=== PATIENT | female | born 1950 | race Caucasian/White ===

== ENCOUNTER 2017-07-26 07:52 | Day surgery (SDC) | payer MEDICARE, BC ==
[2017-07-26] MEDS ORDERED: BRIMONIDINE 0.2% OPHTH DROPS 5 ML EACHEYE ONE (07:53)
[2017-07-26] MEDS ORDERED: TIMOLOL 0.5% OPHTH DROPS EACHEYE ONE (07:53)
[2017-07-26] MEDS ORDERED: PHENYLEPHRINE 2.5% OPHTH 2 ML DROPS ONE (08:42)
[2017-07-26] MEDS ORDERED: KETOROLAC 0.45% OPHTH DROPS ONE (08:42)
[2017-07-26] MEDS ORDERED: CYCLOPENTOLATE 1% OPHTH DROPS 2 ML ONE (08:42)
[2017-07-26] MEDS ORDERED: PROPARACAINE 0.5% OPHTH DROPS 15 ML ONE (08:43)
[2017-07-26] MEDS ORDERED: LACTATED RINGERS 500 ML IV ONE (08:43)
[2017-07-26] MEDS ORDERED: KETOROLAC 0.45% OPHTH DROPS LEFTEYE ONE (08:45)
[2017-07-26] MEDS ORDERED: PHENYLEPHRINE 2.5% OPHTH 2 ML DROPS LEFTEYE ONE (08:45)
[2017-07-26] MEDS ORDERED: CYCLOPENTOLATE 1% OPHTH DROPS 2 ML LEFTEYE ONE (08:45)
[2017-07-26] MEDS ORDERED: PROPARACAINE 0.5% OPHTH DROPS 15 ML LEFTEYE ONE ×2 (08:45→09:16)
[2017-07-26] MEDS ORDERED: TRYPAN BLUE 0.5 ML SYRINGE IO ONE ×2 (08:54→08:57)
[2017-07-26] MEDS ORDERED: CHONDR SULF/HYALURONATE SYRINGE IO ONE (09:15)
[2017-07-26] MEDS ORDERED: BRIMONIDINE 0.2% OPHTH DROPS 5 ML OPTH ONE (09:15)
[2017-07-26] MEDS ORDERED: EPINEPHrine 1 MG/ML AMP IVP ONE (09:15)
[2017-07-26] MEDS ORDERED: TRIAMCIN/MOXIFLOX/VANCO 1 ML VIAL IO ONE (09:16)
[2017-07-26] MEDS ORDERED: BSS/LIDOCAINE/EPINEPHRINE 1 ML SYRINGE IO ONE ×2 (09:16)
[2017-07-26] MEDS ORDERED: TIMOLOL 0.5% OPHTH DROPS OPTH ONE (09:16)
[2017-07-26] MEDS ORDERED: MIDAZOLAM 2 MG/2 ML VIAL IVP ONE (09:17)
[2017-07-26 09:34] VITALS: BP 106/64
--- NOTE | 2017-07-26 11:09 | OPERATIVE REPORT ---
DATE OF SERVICE: 07/26/2017 Physician: Alin Westfall MD PREOPERATIVE DIAGNOSIS: Visually significant cataract, left eye. This is her first cataract surgery. 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 POSTOPERATIVE DIAGNOSIS: Visually significant cataract, left eye. This is her first cataract surgery. 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 PROCEDURE PERFORMED: Phacoemulsification with posterior chamber intraocular lens implant, left eye. SURGEON: Alin Westfall M.D. ANESTHESIA: Monitored anesthesia care. COMPLICATIONS: None. OPERATIVE INDICATIONS: This is a 67-year-old woman with progressive vision loss in the left eye due to 2-3+ nuclear sclerotic cataract. Best corrected visual acuity was count fingers at 7 feet with glare to count fingers at 1 feet. INDICATIONS FOR SURGERY: Difficulty seeing words, closed captions and games scores on TV and overall decrease in vision. She was consented at length concerning the risks and benefits of cataract surgery. Afterward, she expressed a desire to proceed with surgery. OPERATIVE PROCEDURE: The patient was taken into OR #3 and placed under monitored anesthesia care. A surgical timeout was conducted confirming correct patient, correct procedure, and correct surgical site. She was given topical anesthesia, and prepped and draped in the usual sterile fashion. The eye was entered at the 6 and 3 o'clock positions. Intracameral Shugarcaine was injected into the anterior chamber, followed by Viscoat. A continuous-tear curvilinear capsulorrhexis was performed. The nucleus was hydrodissected and phacoemulsified. Cortex was evacuated using automated infusion and aspiration. Provisc was injected in the capsular bag and an 08.0 diopter intraocular lens was inserted into the bag. Approximately 0.7 mL of a mixture of triamcinolone and moxifloxacin was injected subconjunctivally in the superior quadrant for infection and inflammation prophylaxis. I and A was used to evacuate the viscoelastic material. The eye was inflated to physiologic pressure using balanced salt solution and found to be watertight. The patient was taken from the operating room in good condition and given postoperative instructions. TD: 07/26/2017 09:42 [facility]ISION[facility]
== END 2017-07-26 07:53 | disposition home or self-care (01) ==
LOC: SDS 07:52
PROVIDERS: ATTEND Ophthalmology
PROC: 08RK3JZ Replacement of Left Lens with Synthetic Substitute, Percutaneous Approach (ICD-10-PCS; principal; 2017-07-26 09:00)
DX: H25.12 Age-related nuclear cataract, left eye (principal); H44 Disorders of globe; K21.9 Gastro-esophageal reflux disease without esophagitis; G47.33 Obstructive sleep apnea (adult) (pediatric); M19.90 Unspecified osteoarthritis, unspecified site
CPT/HCPCS: 66984; A9270; J3490

== ENCOUNTER 2017-09-06 09:08 | Day surgery (SDC) | payer MEDICARE, OTHER ==
[~2017-09-06 09:08] MED LIST: BRIMONIDINE 0.2% OPHTH DROPS 5 ML ONE; BSS/LIDOCAINE/EPINEPHRINE 1 ML SYRINGE ONE; TIMOLOL 0.5% OPHTH DROPS ONE; TRIAMCIN/MOXIFLOX OPHTHALMIC 0.6 ML VIAL IO ONE; VANCOMYCIN OPHTHALMI 8MG/0.8ML 8 MG/0.8 ML SYRINGE IO ONE
[2017-09-06] MEDS ORDERED: PHENYLEPHRINE 2.5% OPHTH 2 ML DROPS ONE (09:28)
[2017-09-06] MEDS ORDERED: KETOROLAC 0.45% OPHTH DROPS ONE (09:28)
[2017-09-06] MEDS ORDERED: CYCLOPENTOLATE 1% OPHTH DROPS 2 ML ONE (09:29)
[2017-09-06] MEDS ORDERED: PROPARACAINE 0.5% OPHTH DROPS 15 ML ONE (09:30)
[2017-09-06] MEDS ORDERED: LACTATED RINGERS 500 ML IV ONE (09:56)
[2017-09-06] MEDS ORDERED: KETOROLAC 0.45% OPHTH DROPS RIGHTEYE ONE (10:07)
[2017-09-06] MEDS ORDERED: PROPARACAINE 0.5% OPHTH DROPS 15 ML RIGHTEYE ONE ×2 (10:07→11:44)
[2017-09-06] MEDS ORDERED: PHENYLEPHRINE 2.5% OPHTH 2 ML DROPS RIGHTEYE ONE (10:07)
[2017-09-06] MEDS ORDERED: CYCLOPENTOLATE 1% OPHTH DROPS 2 ML RIGHTEYE ONE (10:07)
[2017-09-06] MEDS ORDERED: MIDAZOLAM 2 MG/2 ML VIAL IVP ONE (11:30)
[2017-09-06] MEDS ORDERED: BRIMONIDINE 0.2% OPHTH DROPS 5 ML OPTH ONE (11:42)
[2017-09-06] MEDS ORDERED: TIMOLOL 0.5% OPHTH DROPS OPTH ONE (11:43)
[2017-09-06] MEDS ORDERED: EPINEPHrine 1 MG/ML AMP IR ONE (11:43)
[2017-09-06] MEDS ORDERED: CHONDR SULF/HYALURONATE SYRINGE IO ONE (11:43)
[2017-09-06] MEDS ORDERED: BSS/LIDOCAINE/EPINEPHRINE 1 ML SYRINGE IO ONE (11:43)
[2017-09-06 12:09] VITALS: BP 132/66
--- NOTE | 2017-09-06 12:23 | OPERATIVE REPORT ---
DATE OF SERVICE: 09/06/2017 Physician: Alin Westfall MD PREOPERATIVE DIAGNOSIS: Visually significant cataract, right eye. Cataract surgery was performed on the left eye on 07/26/2017. POSTOPERATIVE DIAGNOSIS: Visually significant cataract, right eye. Cataract surgery was performed on the left eye on 07/26/2017. PROCEDURE: Phacoemulsification with posterior chamber intraocular lens implant, right eye, with laser assist. SURGEON: Alin Westfall MD ANESTHESIA: Monitored anesthesia care. COMPLICATIONS: None. OPERATIVE INDICATIONS: This is a 67-year-old woman with progressive vision loss in the right eye due to 2-3+ nuclear sclerotic cataract. Best corrected visual acuity is 20/30, with glare to 26/30 in the right eye. Indications for surgery were difficulty seeing street signs, difficulty driving at night because of head lights from other vehicles, difficulty with glare or bright lights in a situation, and difficulty tracking the golf ball. She was consented at length concerning the risks and benefits of cataract surgery, after which she expressed a desire to proceed with surgery. OPERATIVE PROCEDURE: The patient was taken to OR #3 and placed under monitored anesthesia care. A surgical timeout was conducted confirming correct patient, correct procedure, and correct surgical site. She was placed under the LenSx laser, and eye was docked to the laser interface. The laser performed the capsulotomy, lens softening, phaco wounds, and arcuate keratotomy incisions. She was then moved to the operating microscope, given topical anesthesia, and then prepped and draped in the usual sterile fashion. The eye was entered at the 12 and 9 o'clock positions. Intracameral Shugarcaine was injected into the anterior chamber, followed by Viscoat. The capsulorrhexis flap created by the LenSx laser was removed from the anterior chamber. The nucleus was hydrodissected and phacoemulsified. The cortex was evacuated using automated infusion and aspiration. Provisc was injected into the capsular bag, and a 12.0 diopter intraocular lens was inserted into the bag. Approximately 0.8 mL of a mixture of triamcinolone, moxifloxacin, and vancomycin was injected subconjunctivally in the superior quadrant for infection and inflammation prophylaxis. I and A was used to evacuate the viscoelastic material. The eye was inflated to physiologic pressure using balanced salt solution, and found to be watertight. The patient was taken from the operating room in good condition, and given postoperative instructions. TD: 09/06/2017 12:15
== END 2017-09-06 09:09 | disposition home or self-care (01) ==
LOC: SDS 09:08
PROVIDERS: ATTEND Ophthalmology
PROC: 08RJ3JZ Replacement of Right Lens with Synthetic Substitute, Percutaneous Approach (ICD-10-PCS; principal; 2017-09-06 10:30)
DX: H25.11 Age-related nuclear cataract, right eye (principal); I10 Essential (primary) hypertension; H44.22 Degenerative myopia, left eye; G47.33 Obstructive sleep apnea (adult) (pediatric)
CPT/HCPCS: 66984; A9270; J3490; V2632

== ENCOUNTER 2017-11-27 07:43 | Outpatient (CLI) | payer MEDICARE, OTHER ==
--- NOTE | 2017-11-27 11:49 | MRI Report ---
Reason: SPRAIN OF UNSPECIFIED SITE OF LEFT KNEE,INITIAL E Procedure Date: 11/27/2017 Accession Number: [id number] / [id number] Procedure: MRI - Knee LT W/O CPT Code: FULL RESULT: EXAM: LEFT KNEE MRI WITHOUT CONTRAST EXAM DATE: 11/27/2017 08:38 AM. CLINICAL HISTORY: Sprain of unspecified site of left knee, initial encounter. COMPARISON: None. TECHNIQUE: Multiplanar, multisequence T1-weighted and fluid-sensitive sequences of the knee without contrast. Other: None. FINDINGS: Bones: There is severe thinning of the hyaline cartilage of the medial compartment with osteophytes and subchondral edema consistent with moderate to severe osteoarthritis. There are regions of denuded bone. There is mild hyaline cartilage thinning in the lateral and patellofemoral compartments also with osteophyte formation. Articular Cartilage: See above. Medial Meniscus: There is an incomplete radial tear of the posterior horn of the medial meniscus with extrusion. Lateral Meniscus: No appreciable tear. Cruciate Ligaments: The ACL is thickened with increased T2 signal consistent with mucoid degeneration. There is increased T2 signal in the mid substance of the PCL suggestive of a partial-thickness tear. Collateral Ligaments: The medial collateral and lateral collateral ligamentous structures are intact. Tendons: The quadriceps, patellar, semimembranosus, and popliteus tendons are unremarkable. Musculature: No edema or fatty atrophy. Other: There is a moderate-sized joint effusion.. No popliteal cyst. There is a 4 mm diameter bony filling defect in the joint space posterior to the lateral femoral condyle image 701/9 suggestive of a loose body. The medial and lateral retinacula are intact. The subcutaneous tissues and fat pads are unremarkable. IMPRESSION: 1. Moderate to severe osteoarthritis of the medial compartment. Mild lateral and patellofemoral compartment osteoarthritis. 2. Radial tear of the medial meniscus with extrusion. 3. Moderate-sized joint effusion with loose body. 4. Partial-thickness tear of the PCL. Mucoid degeneration of the ACL. [facility] MUSCULOSKELETAL RADIOLOGY SECTION
== END 2017-11-27 07:44 | disposition home or self-care (01) ==
LOC: DI 07:43
PROVIDERS: ATTEND Orthopaedic Surgery Foot and Ankle Surgery
DX: M17.12 Unilateral primary osteoarthritis, left knee (principal); S83.242A Other tear of medial meniscus, current injury, left knee, initial encounter; S83.522A Sprain of posterior cruciate ligament of left knee, initial encounter; M25.462 Effusion, left knee; S83.91XA Sprain of unspecified site of right knee, initial encounter

== ENCOUNTER 2018-08-19 08:12 | Outpatient (CLI) | payer MEDICARE, OTHER ==
--- NOTE | 2018-08-19 17:45 | MRI Report ---
Reason: SHOULDER JOINT PAIN,RIGHT Procedure Date: 08/19/2018 Accession Number: [id number] / [id number] Procedure: MRI - Shoulder RT W/O CPT Code: FULL RESULT: EXAM: RIGHT SHOULDER MRI WITHOUT CONTRAST EXAM DATE: 08/19/2018 09:03 AM. CLINICAL HISTORY: Shoulder joint pain, right. COMPARISON: None. TECHNIQUE: Multiplanar, multisequence T1-weighted and fluid-sensitive sequences of the shoulder without contrast. Other: None. FINDINGS: Acromioclavicular Region: The acromion is type II unipartite. AC joint is moderately osteoarthritic. Synovial hypertrophic change, small joint effusion is present. The coracoacromial and coracoclavicular ligaments are intact. Moderate amount of bursal fluid also noted. Glenohumeral Region: No subluxation. No effusion or loose bodies. The articular cartilage is unremarkable. The glenohumeral ligaments and joint capsule are unremarkable. Bone Marrow: No fracture, marrow edema or bone lesions. Labrum: The labrum is unremarkable on this nonarthrographic study. Musculature/Rotator Cuff: Supraspinatus and infraspinatus portions of the cuff are quite swollen with increased T2 signal. No focal fluid filled gaps are identified. Some swelling also seen in the subscapularis. Teres minor is normal. No proximal muscular edema or fatty atrophy. Biceps Tendon: The long head of the biceps tendon and biceps arie are intact. Other: The subcutaneous tissues are unremarkable. IMPRESSION: 1. Type II unipartite undersurface osseous acromion shape. AC joint is moderately osteoarthritic. Moderate amount of bursal fluid is present. 2. Fairly severe tendinitis involves the supraspinatus and infraspinatus portions of the cuff. Moderate tendinitis also seen at the subscapularis. Teres minor is normal. 3. Labrum, capsular structures and long head of biceps appear unremarkable. [facility]
== END 2018-08-19 08:13 | disposition home or self-care (01) ==
LOC: DI 08:12
PROVIDERS: ATTEND Orthopaedic Surgery Sports Medicine
DX: M19.011 Primary osteoarthritis, right shoulder (principal); M75.91 Shoulder lesion, unspecified, right shoulder

== ENCOUNTER 2019-08-27 10:46 | Outpatient (CLI) | payer MEDICARE, OTHER ==
[2019-08-27 11:17] LABS: BASOPHILS % (AUTO) 0.8 %; EOSINOPHILS # (AUTO) 0.2 10^3/uL (0.0-0.7); EOSINOPHILS % (AUTO) 3.3 %; HGB - HEMOGLOBIN 13.6 g/dL (12.0-16.0); LYMPHOCYTES # (AUTO) 1.3 10^3/uL (1.5-3.5); LYMPHOCYTES % (AUTO) 24.6 %; MEAN CORPUSCULAR HEMOGLOBIN 31.7 pg (27.0-31.0); MEAN CORPUSCULAR HGB CONC 33.4 g/dL (32.0-36.0); MEAN CORPUSCULAR VOLUME 94.9 fL (81.0-99.0); MEAN PLATELET VOLUME 8.5 fL (7.9-10.8); MONOCYTES # (AUTO) 0.6 10^3/uL (0.0-1.0); MONOCYTES % (AUTO) 11.3 %; NEUTROPHILS # (AUTO) 3.1 10^3/uL (1.5-6.6); NEUTROPHILS % (AUTO) 59.8 %; PLT - PLATELET COUNT 273 10^3/uL (130-450); RED BLOOD COUNT 4.29 10^6/uL (4.20-5.40); RED CELL DISTRIBUTION WIDTH 11.8 % (12.0-15.0); WHITE BLOOD COUNT 5.2 x10^3/uL (4.8-10.8)
[2019-08-27 11:42] LABS: CHOL/HDL RATIO 2.2 (<4.4); CHOLESTEROL 183 mg/dL; HDL CHOLESTEROL 82 mg/dL; LDL CHOLESTEROL,CALCULATED 88 mg/dL; LDL/HDL RATIO 1.1 (<4.4); VLDL CHOLESTEROL 13 mg/dL
== END 2019-08-27 10:47 | disposition home or self-care (01) ==
LOC: LAB 10:46
PROVIDERS: ATTEND Nurse Practitioner Family
DX: E78.5 Hyperlipidemia, unspecified (principal); D72.829 Elevated white blood cell count, unspecified; Z78.0 Asymptomatic menopausal state; Z98.84 Bariatric surgery status
CPT/HCPCS: 36415; 80061; 82306; 83721; 85025

== ENCOUNTER 2020-08-31 08:21 | Outpatient (CLI) | payer MEDICARE, OTHER ==
[2020-08-31 08:46] LABS: BASOPHILS # (AUTO) 0.1 10^3/uL (0.0-0.1); BASOPHILS % (AUTO) 0.8 %; EOSINOPHILS # (AUTO) 0.2 10^3/uL (0.0-0.7); EOSINOPHILS % (AUTO) 3.5 %; HCT - HEMATOCRIT 42.8 % (37.0-47.0); HGB - HEMOGLOBIN 14.3 g/dL (12.0-16.0); LYMPHOCYTES # (AUTO) 1.1 10^3/uL (1.5-3.5); LYMPHOCYTES % (AUTO) 18.8 %; MEAN CORPUSCULAR HGB CONC 33.4 g/dL (32.0-36.0); MEAN CORPUSCULAR VOLUME 92.8 fL (81.0-99.0); MEAN PLATELET VOLUME 8.2 fL (7.9-10.8); MONOCYTES # (AUTO) 0.5 10^3/uL (0.0-1.0); MONOCYTES % (AUTO) 7.8 %; NEUTROPHILS # (AUTO) 4.2 10^3/uL (1.5-6.6); NEUTROPHILS % (AUTO) 68.8 %; PLT - PLATELET COUNT 281 10^3/uL (130-450); RED BLOOD COUNT 4.61 10^6/uL (4.20-5.40); RED CELL DISTRIBUTION WIDTH 12.1 % (12.0-15.0); WHITE BLOOD COUNT 6.1 x10^3/uL (4.8-10.8)
[2020-08-31 09:06] LABS: ALBUMIN 4.4 g/dL (3.2-5.5); ALBUMIN/GLOBULIN RATIO 1.6 (1.0-2.2); BILIRUBIN,TOTAL 0.8 mg/dL (0.2-1.0); CALCIUM 9.3 mg/dL (8.5-10.3); CREATININE 0.7 mg/dL (0.4-1.0); TOTAL PROTEIN 7.2 g/dL (6.7-8.2)
[2020-08-31 09:25] LABS: FERRITIN 95.9 ng/mL (11.0-306.8)
== END 2020-08-31 08:22 | disposition home or self-care (01) ==
LOC: LAB 08:21
PROVIDERS: ATTEND Internal Medicine
DX: M17.0 Bilateral primary osteoarthritis of knee (principal); K91.2 Postsurgical malabsorption, not elsewhere classified; Z68.31 Body mass index [BMI] 31.0-31.9, adult; Z98.84 Bariatric surgery status
CPT/HCPCS: 36415; 80053; 82306; 82607; 82728; 82746; 83540; 83970; 84425; 84466; 85025

== ENCOUNTER 2020-12-13 13:26 | Outpatient (CLI) | payer MEDICARE, OTHER | END 2020-12-13 13:27 | disposition home or self-care (01) | LOC: COV 13:26 | PROVIDERS: ATTEND Physician Assistant | DX: Z01.812 Encounter for preprocedural laboratory examination (principal); Z20.822 Contact with and (suspected) exposure to COVID-19 ==

== ENCOUNTER 2021-08-23 10:07 | Outpatient (CLI) | payer MEDICARE, OTHER ==
[2021-08-23 11:12] VITALS: BP 111/69
--- NOTE | 2021-08-23 11:12 | SLEEP CARE CONSULTATION ---
Information from patient questionnaire entered by Mica Domingo MA. I have reviewed and concur with the information entered by Mica Domingo MA. This document represents the service I personally performed and the decisions made by , Queta Flores ARNP. History of Present Illness Service Date and Time: 08/23/2021 1007 Reason for Visit: New patient (ONSET 02/1999, ORAL DEVICE, PRIOR? ), Previously diagnosed sleep apnea (on oral appliance therapy) Chief Complaint: reports: Frequent awakenings at night Date of Onset: 1 year Usual bedtime: 9 pm Time it takes to fall asleep: 45 - 1 hour Snores at night: Yes Observed to quit breathing while asleep: Yes Sleeps alone due to snoring: No (4-5) Number of times waking at night: 2-3 Reasons for waking at night: reports: Snoring, Bathroom. denies: Choking, Gasping for air Toss, Turn, or Twitch while sleeping: Yes Recalls having dreams: Yes Usually gets out of bed at: 0700 Feels refreshed in the morning: Yes Morning headache: No Sleepy or fatigued during the day: Yes Ever fallen asleep while driving: No Takes day naps: No Dreams during day naps: No Prior sleep studies: Yes Year and Where: 2015, 2018 [facility] Type of Sleep Study: Home sleep study Additional HPI information: MISHA MEDINA was previously diagnosed to have mild, AHI 14.2, obstructive sle ep apnea-hypopnea syndrome and comes in today to establish care for Oral device therapy. She has also been having some episodes of vertigo and was sent her for evaluation of therapy effectiveness. She had a HST done through [facility] on 08/18/2015 with an average AHI of 15 and RDI of 36.2, showing moderate obstructive sleep apnea. She had another HST done through [facility] on 01/27/2019 which showed an average AHI of 14.2 and RDI of 20.7, indicating mild to moderate obstructive sleep apnea. She has been on an oral appliance for about 5 years, it was last updated about 2.5 years ago. She thinks she may have had her oral appliance in place for the last study but after my review of the document, no notation of this was found in the document. - Parasomnia Symptoms Ever been unable to move upon waking from sleep: No Walks in sleep: No Talks in sleep: No Ever acted out dreams in sleep: No Ever felt weak in the knees when startled or emotional: No Bothered by creepy, crawly, restless sensations in legs: No Problems with memory or concentration: Yes (sometimes) CPAP Compliance Data Compliance data discussion: She is using an oral appliance to control her sleep apnea. She states she wears it every night. If she should fall asleep without it, she states she will put in when she wakes up later that night. She has no issues with using the oral appliance. She states she seems to get the best results when she is on her right side. Left side is good but she will have some breakthrough snoring when on her back. She can self adjust her device as needs, she last adjusted it about 8-9 months ago. She adjust because she did not feel she was sleeping as good. It did seem to help her sleep better after the adjustment. She is currently at 6 on the adjustment, it can go to 8. Subjective On therapy, patient: reports: sleeping better, awakening more refreshed, being more awake and alert during the day, more rested overall. denies: drowsiness while driving Initial [place] Sleepiness Scale score: 4 (08/23/2021) Past Medical History Past Medical History: reports: Hypertension, Arthritis, Other (high cholesterol; Left knee replacement Nov 2020; tonsillectomy/adnoidectomy; hysterectomy; shoulder surgery; trigger finger bilaterally) Social History The patient's occupation is a RE. Patient is and lives in . Have you smoked in the past 12 months: No Alcohol use: Yes Alcohol amount and frequency: 2 x daily Caffeine use: No Family History Family history of sleep disordered breathing: Yes Family Hx Sleep Apnea: Father: Snoring, Sleep apnea - Untreated Allergies and Home Medications Known drug allergies: No Drug allergies reviewed: Yes (NKDA) Home medication list reviewed: Yes Allergy and home medication list: Allergies No Known Drug Allergies Allergy (Verified 07/26/17 08:40) Medications: Celebrex 200 mg 1 daily Lisinopril/HCTZ 10/12 mg 1 tab once daily Rosuvastatin 5 mg daily Zolpidem 5mg, prn Voltaren 2 times day, prn Multivitamin B12 500 mcg D3 125 mcg 1 daily Probiotic Review of Systems Weight gain over past 5 years: 10 Cardiovascular: reports: high blood pressure, have to sleep sitting up Ear/Nose/Throat: reports: tonsillectomy, other (Rhinoplasty). denies: wisdom teeth removed Endocrine: reports: too hot or cold (flashes) Immunologic: reports: allergies to food or environment (cats, grass) Physical Exam Vital signs obtained and entered by: Amanda DOMINGO CMA AAJASPER Blood Pressure: 111/69 (RESP 20, PULSE 68, LEFT) Cuff size: regular Heart Rate: 68 O2 Saturation: 98 Height: 5 ft 6 in Weight: 181 lb Body Mass Index: 29.2 BMI Classification: Overweight Neck circumference: 14 (INCHES) Heart: regular rate and rhythm Lungs: clear bilaterally Impression and Plan 1. Obstructive Sleep Apnea-Hypopnea Syndrome, mild to moderate. Using oral appliance therapy, the patient has better sleep quality and is more rested overall. Patient has been having episodes of vertigo. She states that she would only get one every few months and then she had a time where she was getting vertigo every other day for about a week. She has not had an episode for the last 5 weeks. After discussing this with her PCP who is doing some further evaluation they decided to have her come in for evaluation of her obstructive apnea therapy. She has not had an increase in her symptoms since her last adjustment of her oral device. She is feeling rested in the morning and denies increased daytime sleepiness. It does not appear that she had a follow up sleep study with the oral appliance in place to check its effectiveness. I think it would be prudent to check therapy effectiveness. I will order a sleep study and follow up with her once this is completed. Once we have those results, we can determine if any changes to her therapy needs to be initiated. She voiced un derstanding and agreement. Patient's apnea severity and rationale for treatment to reduce apnea, improve sleep quality and reduce cardiovascular and cerebrovascular events was reviewed. -Continue oral appliance therapy -HST/PSG to check effectiveness of therapy -Call this office if any problems -Return for follow up after sleep study, or sooner if concerns arise Counseling Topics: Weight loss health impact Visit Type: In Office Time Spent with Patient (minutes): 36 Provider Statement: I spent 100% of the Face to Face Visit with the patient with greater than 50% spent counseling the patient and coordination of care.
== END 2021-08-23 10:08 | disposition home or self-care (01) ==
LOC: SC 10:07
PROVIDERS: ATTEND Nurse Practitioner Family
DX: G47.33 Obstructive sleep apnea (adult) (pediatric) (principal); E66.3 Overweight; Z68.29 Body mass index [BMI] 29.0-29.9, adult
CPT/HCPCS: 99203; G0463; 99212

== ENCOUNTER 2021-11-16 10:03 | Outpatient (CLI) | payer MEDICARE, OTHER ==
[2021-11-16 10:46] VITALS: BP 136/72
--- NOTE | 2021-11-16 10:46 | SLEEP CARE CONSULTATION ---
Information from patient questionnaire entered by eJf Fam. I have reviewed and concur with the information entered by Jef Fam. This document represents the service I personally performed and the decisions made by me, Queta Flores ARNP. History of Present Illness Service Date and Time: 11/16/2021 1003 Initial [place] Sleepiness Scale score: 4 (08/23/2021) Current Blairs Sleepiness Scale score: 4 (11/16/21) Additional HPI information: MISHA MEDINA returns for follow up and results of the recently performed polysomnography. I explained the pathophysiology behind obstructive sleep apnea. We then spent quite a bit of time discussing different treatment options. For mild obstructive sleep apnea, surgery and oral appliance are alternatives to nasal CPAP therapy but in moderate or severe cases, nasal CPAP is the most effective and reliable treatment. Because apnea is primarily in supine position, then positional management therapy could be effective. Methods discussed such as positioning with pillows to prevent supine sleep. I reviewed the impact of weight changes on sleep apnea and strongly recommended losing weight. After some discussion, the patient opted to go with the nasal CPAP therapy. Nasal autoCPAP set at 4-15 cmH20 will be ordered with rationale explained. A manual titration study will be ordered if unable to find optimal pressure with office adjustments. I explained how CPAP machine works and what to expect when using the machine. Using CPAP every night in order to get used to it was emphasized. Patient advised to put CPAP mask on before getting into bed so as not to fall asleep without CPAP. To assist acclimation to CPAP use, it could also be used for a short time during day while reading or watching TV. The patient was instructed to call the CPAP supplier to discuss any mechanical problem that may occur. If the mask given is uncomfortable or is difficult to keep on through the night even with adjustment, contact the CPAP supplier as many will replace with another mask style if notified before 30 days. If snoring or perceives is not getting enough air or too much air from the machine, notify this office. Patient counseled not drink alcohol less than 4 hours before bedtime as it can increase snoring and apnea. Patient was cautioned about risks of drowsy driving until sleepiness symptoms resolve. Patient denies drowsy driving. Sleep Study - Results Type of Sleep Study: Polysomnography (DONE 10/14/21) Prior sleep studies: Yes Year and Where: 2015, 2018 [facility] Polysomnography/Home Sleep Study results: IMPRESSION: The quality of the study is good. The patient had normal sleep efficiency. The sleep architecture was abnormal for sleep fragmentation and reduced amount of time spent in slow wave sleep (N3). Respiratory monitoring showed severe obstructive sleep apnea-hypopnea (AHI = 52.9) associated with frequent arousals, oxyhemoglobin desaturation and moderate hypoxia (belén oxygen saturation of 77%) . Baseline oxygen saturation was normal. The respiratory events occurred independently of sleep stage and body position (supine AHI = 73.6; non-supine = 41.12). Snore was moderate to loud in intensity. There was mild periodic leg movement of sleep contributing to the sleep fragmentation. Cardiac rhythm was normal sinus rhythm without significant arrhythmia. No abnormal behavior (parasomnia) observed during the night. Allergies and Home Medications Drug allergies reviewed: Yes (NKDA) Home medication list reviewed: Yes (No changes) Allergy and home medication list: Allergies No Known Drug Allergies Allergy (Verified 07/26/17 08:40) Review of Systems Review of systems same as previous: Yes (No changes) Physical Exam Vital signs obtained and entered by: JASPER HERNANDEZ Blood Pressure: 136/72 (left arm ) Cuff size: regular Heart Rate: 76 O2 Saturation: 97 Height: 5 ft 6 in Weight: 184 lb Body Mass Index: 29.7 BMI Classification: Overweight Impression and Plan 1. Obstructive Sleep Apnea-Hypopnea Syndrome, severe, with lowest oxygen saturation of 77%. Obviously this is the cause of the patients symptoms of unrefreshed sleep, and excessive daytime sleepiness. Positive pressure therapy could benefit hypertension. As mentioned above, the patient will be started on nasal autoCPAP therapy with pressure set at 4-15 cmH2O. Compliance guidelines also reviewed. A copy of compliance guidelines will be given for reference at check out. Because the apnea is more severe supine, I instructed to avoid sleeping supine using pillow positioning until able to start CPAP use. 2. Periodic limb movement, mild, that did fragment patients sleep. Periodic limb movement of sleep (PLMS) is characterized by episodes of repetitive limb movements that occur during sleep and usually involve the lower limbs. The etiology is unknown. Caffeine can aggravate PLMS and should be avoided. Sleep hygiene methods can also improve sleep as well as lifestyle changes such as regular exercise. Patient was advised that no treatment is needed at this time. If symptoms increase, then further evaluation is indicated. 3. Hypoxemia, moderate, with a belén oxygen saturation of 77% and 34.7 minutes spent under 90%. Her baseline oxygen saturation was normal with an average oxygen saturation of 93%. * Nasal auto CPAP therapy, pressure at 4-15 cm H2O. * Attempt to lose weight. * Avoid alcohol consumption near bedtime. * Avoid supine sleep until using CPAP. * The patient is again cautioned about driving until sleepiness completely resolves. * Return one month after CPAP obtained. I will assess response to therapy and compliance at that time. Counseling Topics: Weight loss health impact Visit Type: In Office Time Spent with Patient (minutes): 22 Provider Statement: I spent 100% of the Face to Face Visit with the patient with greater than 50% spent counseling the patient and coordination of care.
== END 2021-11-16 10:04 | disposition home or self-care (01) ==
LOC: SC 10:03
PROVIDERS: ATTEND Nurse Practitioner Family
DX: G47.33 Obstructive sleep apnea (adult) (pediatric) (principal); G47.61 Periodic limb movement disorder; R09.02 Hypoxemia; E66.3 Overweight; Z68.29 Body mass index [BMI] 29.0-29.9, adult
CPT/HCPCS: 99213; G0463; 99212

== ENCOUNTER 2021-12-12 14:13 | Outpatient (CLI) | payer MEDICARE, OTHER ==
--- NOTE | 2021-12-12 18:17 | MRI Report ---
PROCEDURE: MR angiogram brain without contrast INDICATIONS: VERTIGO TECHNIQUE: Noncontrast axial 3-D etef-gw-[id number] MR angiogram, with 3-dimensional maximum intensity projection (M IP) reformats of the internal carotid arteries and posterior circulation then performed. COMPARISON: None. FINDINGS: Image quality: Excellent. Anterior circulation: Intracranial internal carotid arteries demonstrate normal size and intralumina l flow signal. The flow within the paired anterior cerebral arteries is normal and symmetric. The f low within the middle cerebral arteries is normal and symmetric. The anterior communicating artery i s seen. No stenoses, occlusions, or aneurysms. Posterior circulation: Visualized portions of the vertebral arteries demonstrate normal caliber, and join to form a normal appearing basilar artery. Fenstration of the mid basilar noted, an anatomic v ariant The flow within the posterior cerebral arteries is normal and symmetric. No stenoses, occlusi ons, or aneurysms. IMPRESSION: Normal MR angiogram the brain Reviewed by: Gilmer Pacheco MD on 12/12/2021 5:15 PM [facility] Approved by: Gilmer Pacheco MD on 12/12/2021 5:15 PM [facility] Station ID: [id number]
--- NOTE | 2021-12-12 18:24 | MRI Report ---
PROCEDURE: BRAIN WO INDICATIONS: VERTIGO TECHNIQUE: Noncontrast axial T1 spin echo, axial T2 fast spin echo, sagittal and axial FLAIR, coronal T2 fast sp in echo, axial gradient echo, axial diffusion and ADC through the brain. COMPARISON: Correlation is made with the accompanying MR angiogram images, 12/12/2021. FINDINGS: Image quality: Excellent. CSF Spaces: Basal cisterns are patent. No extra-axial fluid collections. Ventricles are normal in size and shape. Brain: No intracranial masses or hemorrhage. Rivera/white matter interface is normal. Brainstem appe ars normal. Diffusion-weighted images demonstrate no acute ischemic insult. No chronic ischemic ins ults. Normal intravascular flow voids are present. Mild brain parenchymal volume loss and chronic s mall vessel ischemic change can be seen. In this patient with this given history, scrutiny is given to the cerebellopontine angle cisterns and to the internal auditory canals. To the limits of this standard protocol study, no masses can be see n within these regions. Skull and face: Calvarium has normal marrow signal. Incidental note is made of bilateral lens repl acements. The globes are abnormally elongated, as seen on series 7 image 8 and on series 8 image 8. Sinuses: Sinuses and mastoids are clear. IMPRESSION: No imaging explanation is found for the patient's presenting symptoms. Abnormal lobes, which are abnormally elongated. Please correlate with known ophthalmologic findings. Prior bilateral lens replacements are noted. Reviewed by: Bobby Reid MD on 12/12/2021 5:22 PM NERI Approved by: Bobby Reid MD on 12/12/2021 5:22 PM AKREVA Station ID: [id number]
== END 2021-12-12 14:14 | disposition home or self-care (01) ==
LOC: DI 14:13
PROVIDERS: ATTEND Internal Medicine Geriatric Medicine
DX: R42 Dizziness and giddiness (principal)

== ENCOUNTER 2022-03-21 09:27 | Outpatient (CLI) | payer MEDICARE, OTHER ==
--- NOTE | 2022-03-21 09:20 | SLEEP CARE CONSULTATION ---
Information from patient questionnaire entered by Andressa Altamirano. I have reviewed and concur with the information entered by Andressa Altamirano. This document represents the service I personally performed and the decisions made by me, Queta Flores ARNP. History of Present Illness Service Date and Time: 03/21/2022 0920 Previous diagnosis: Severe, Obstructive Sleep Apnea-Hypopnea Syndrome AHI: 52.9 (in 2021) Reason for follow up: other (SIX WEEK F/U ) Equipment type: CPAP (RESMED Airsense 11 s/u 12/01/2021) Equipment obtained from: Other ([facility] in [place]; getting supplies) Mask style: Full face Mask brand: [employer] (hybrid (under nose over mouth)) Backup mask available: Yes (old mask) Last cushion change: 2 weeks Prior sleep studies: Yes Year and Where: 2015, 2018 [facility] Type of Sleep Study: Polysomnography (DONE 10/14/21) HPI additional information: MISHA MEDINA was diagnosed to have severe, AHI 52.9, obstructive sleep apnea-hypopnea syndrome and returns via video telehealth visit today for CPAP therapy six week with pressure change follow-up. Sleep Study - Results Type of Sleep Study: Polysomnography (DONE 10/14/21) Prior sleep studies: Yes Year and Where: 2018 [facility] CPAP Compliance Data - Data Reviewed with Patient Average duration of nightly device use: 8 HRS 16 MIN Compliance rate %: 93 (02/18/22-03/19/22; 30/30 days used) Current pressure setting (cmH2O): 12-18 (median 13.0, avg 16.8, max 17.6) Average residual AHI: 7.9 Central apnea: 2.9 Obstructive apnea: 4.3 Subjective Patient concerns: reports: dry mouth, nose, throat (mild dry mouth nightly). denies: aerophagia, mask discomfort, air blowing in eyes, mask leak noise, condensation in mask/hose, nasal congestion, epistaxis Observed to snore while using device: No Current pressure setting perceived as: comfortable On therapy, patient: reports: sleeping better, awakening more refreshed, being more awake and alert during the day, more rested overall. denies: drowsiness while driving Initial Buckner Sleepiness Scale score: 4 (08/23/2021) Current Buckner Sleepiness Scale score: 1 (03/21/22) Allergies and Home Medications Drug allergies reviewed: Yes Home medication list reviewed: Yes (no changes) Allergy and home medication list: Allergies No Known Drug Allergies Allergy (Verified 03/21/22) Review of Systems Review of systems same as previous: Yes (no changes) Physical Exam Vital signs obtained and entered by: VIA PHONE ANDRESSA Sandoval MA Height: 5 ft 6 in (PER PT) Weight: 180 lb (PER PT) Body Mass Index: 29.0 BMI Classification: Overweight Impression and Plan 1. Obstructive Sleep Apnea-Hypopnea Syndrome, severe, with good treatment compliance and fair apnea control. On CPAP therapy, the patient has better sleep quality and is more rested overall. Patient has significant improvement of their sleep apnea and are satisfied with current CPAP therapy. Patient is having some oral dryness nightly. She has her humidifier set at the top setting. [place] and the air is very dry. I advised her to put a humidifier in her sleeping room to help moisten the air to help reduce the oral dryness. She voiced understanding. The patients pressure will be changed to autoCPAP 14-18 cmH20 for elevation of residual AHI. Patient advised to contact me if pressure change is uncomfortable so that it can be adjusted. Goals for apnea control discussed. Patient's apnea severity and rationale for treatment to reduce apnea, improve sleep quality and reduce cardiovascular and cerebrovascular events was reviewed. I also reviewed the benefit of consistent device use of CPAP for hypertension. 2. Overweight, unspecified. Currently patients BMI is 29.0. Obesity increases the risk of apnea, CPAP pressure requirements and overall health risks especially cardiovascular and diabetes. Thus patient is advised to lose weight. * Change auto CPAP pressure to 14-18 cmH2O * Notify me if snoring with mask or feeling that the pressure is too much or too little * Attempt to lose weight * Call this office if any problems using CPAP * Return for follow up in 3 months, or sooner if concerns arise Counseling Topics: Spare mask, Weight loss health impact Visit Type: Telehealth Video Video Type: Doximity Location of Provider: Office Patient agrees and consents to this telehealth visit type: Yes Patient agrees to have their insurance billed: Yes Time Spent with Patient (minutes): 20 Provider Statement: I spent 100% of the Telehealth Video Call with the patient with greater than 50% spent counseling the patient and coordination of care.
== END 2022-03-21 09:28 | disposition home or self-care (01) ==
LOC: SC 09:27
PROVIDERS: ATTEND Nurse Practitioner Family
DX: G47.33 Obstructive sleep apnea (adult) (pediatric) (principal); E66.3 Overweight; Z68.29 Body mass index [BMI] 29.0-29.9, adult

== ENCOUNTER 2022-06-13 13:51 | Outpatient (CLI) | payer MEDICARE, OTHER ==
[2022-06-13 14:16] VITALS: BP 124/62
--- NOTE | 2022-06-13 14:16 | SLEEP CARE CONSULTATION ---
Information from patient questionnaire entered by Andressa Altamirano. I have reviewed and concur with the information entered by Andressa Altamirano. This document represents the service I personally performed and the decisions made by , Queta Flores ARNP. History of Present Illness Service Date and Time: 06/13/2022 1351 Previous diagnosis: Severe, Obstructive Sleep Apnea-Hypopnea Syndrome AHI: 52.9 (in 2021) Reason for follow up: three month (F/U) Equipment type: CPAP (RESMED Airsense 11 s/u 12/01/2021) Equipment obtained from: Other ([facility] in [place]; getting supplies) Mask style: Full face Mask brand: [employer] Backup mask available: Yes (old mask) Last cushion change: last week Prior sleep studies: Yes Year and Where: 2018 [facility] Type of Sleep Study: Polysomnography (DONE 10/14/21) HPI additional information: MISHA MEDINA was diagnosed to have severe, AHI 52.9, obstructive sleep apnea- hypopnea syndrome and returned today for CPAP therapy three month follow-up. Sleep Study - Results Type of Sleep Study: Polysomnography (DONE 10/14/21) Prior sleep studies: Yes Year and Where: 2018 [facility] CPAP Compliance Data - Data Reviewed with Patient Average duration of nightly device use: 8 HRS 10 MIN Compliance rate %: 97 (03/14/22-06/11/22; 89/90 days used) Current pressure setting (cmH2O): 14-18 (avg 17.4, max 17.7) Average residual AHI: 6.8 Central apnea: 1.9 Obstructive apnea: 4.1 Average large leak: 0 Subjective Missed days of use due to: reports: other (forgot strap at [facility]) Patient concerns: reports: mask leak noise (just needing adjustment to reduce noise), dry mouth, nose, throat (dry mouth). denies: aerophagia, mask discomfort, air blowing in eyes, condensation in mask/hose, nasal congestion, epistaxis Observed to snore while using device: No Current pressure setting perceived as: comfortable On therapy, patient: reports: sleeping better, awakening more refreshed, being more awake and alert during the day, more rested overall. denies: drowsiness while driving Initial Dimmitt Sleepiness Scale score: 4 (08/23/2021) Current Dimmitt Sleepiness Scale score: 1 (06/13/22) Allergies and Home Medications Known drug allergies: No Drug allergies reviewed: Yes Home medication list reviewed: Yes (HCTZ 12 mg) Allergy and home medication list: Allergies No Known Drug Allergies Allergy (Verified 06/12/22 09:17) Review of Systems Review of systems same as previous: No (possible Menieres disease) Physical Exam Vital signs obtained and entered by: ANDRESSA Sandoval MA Blood Pressure: 124/62 (LEFT ARM) Cuff size: regular Heart Rate: 106 O2 Saturation: 96 Height: 5 ft 6 in (PER PT) Weight: 189 lb 3.2 oz Body Mass Index: 30.5 BMI Classification: Obese Impression and Plan 1. Obstructive Sleep Apnea-Hypopnea Syndrome, severe, with good treatment compliance and fair apnea control with elevated residual AHI. On CPAP therapy, the patient has better sleep quality and is more rested overall. Patient feels the pressure is comfortable. The patients pressure will be changed to autoCPAP 16-20 cmH20 for elevation of residual AHI. Patient advised to contact me if pressure change is uncomfortable so that it can be adjusted. Goals for apnea control discussed. Patient's apnea severity and rationale for treatment to reduce apnea, improve sleep quality and reduce cardiovascular and cerebrovascular events was reviewed. I also reviewed the benefit of consistent device use of CPAP for hypertension. 2. Obesity, unspecified. Currently patients BMI is 30.5. Obesity increases the risk of apnea, CPAP pressure requirements and overall health risks especially cardiovascular and diabetes. Thus patient is advised to lose weight. * Change auto CPAP pressure to 16-20 cmH2O * Notify me if snoring with mask or feeling that the pressure is too much or too little * Attempt to lose weight * Call this office if any problems using CPAP * Return for follow up in 1-2 months, or sooner if concerns arise Counseling Topics: Spare mask, Weight loss health impact Visit Type: In Office Time Spent with Patient (minutes): 20 Provider Statement: I spent 100% of the Face to Face Visit with the patient with greater than 50% spent counseling the patient and coordination of care.
== END 2022-06-13 13:52 | disposition home or self-care (01) ==
LOC: SC 13:51
PROVIDERS: ATTEND Nurse Practitioner Family
DX: G47.33 Obstructive sleep apnea (adult) (pediatric) (principal); E66.9 Obesity, unspecified; Z68.30 Body mass index [BMI] 30.0-30.9, adult
CPT/HCPCS: 99213; G0463; 99212

== ENCOUNTER 2022-08-01 10:54 | Outpatient (CLI) | payer MEDICARE, OTHER ==
--- NOTE | 2022-08-01 11:17 | Sleep Patient Instructions ---
Sleep Center Visit Summary - Patient Visit Information Reason for Visit: 1 month followup for CPAP therapy - Patient Instructions Additional Instructions: You were here for follow up of CPAP therapy. You will be continued on CPAP therapy with pressure at 16-18 cmH2O. You should follow up with sleep care in 12 months. You may contact us sooner for any questions or concerns. - Clinic Information Contact: [facility] [address] [place] [address] [email or web address] T: [phone]
--- NOTE | 2022-08-01 11:24 | SLEEP CARE CONSULTATION ---
Information from patient questionnaire entered by Andressa Altamirano. I have reviewed and concur with the information entered by Andressa Altamirano. This document represents the service I personally performed and the decisions made by , Queta Flores ARNP. History of Present Illness Service Date and Time: 08/01/2022 1054 Previous diagnosis: Severe, Obstructive Sleep Apnea-Hypopnea Syndrome AHI: 52.9 (in 2021) Reason for follow up: other (2 MONTH F/U) Equipment type: CPAP (RESMED Airsense 11 s/u 12/01/2021) Equipment obtained from: Other ([facility] in [place]; getting supplies) Mask style: Full face Backup mask available: Yes (other mask) Last cushion change: 2 weeks Prior sleep studies: Yes Year and Where: 2018 [facility] Type of Sleep Study: Polysomnography (DONE 10/14/21) HPI additional information: MISHA MEDINA was diagnosed to have severe, AHI 52.9, obstructive sleep apnea- hypopnea syndrome and returned today for CPAP therapy two month follow-up. Sleep Study - Results Type of Sleep Study: Polysomnography (DONE 10/14/21) Prior sleep studies: Yes Year and Where: 2018 [facility] CPAP Compliance Data - Data Reviewed with Patient Average duration of nightly device use: 7 HRS 49 MIN Compliance rate %: 98 (05/29/22-07/27/22; 60/60 days used) Current pressure setting (cmH2O): 16-18 (median 16.1, avg 18.0, max 18.3) Average residual AHI: 7.2 Central apnea: 1.8 Obstructive apnea: 4.5 Hypopnea: 0.8 Average large leak: 0.1 LPM Subjective Patient concerns: reports: dry mouth, nose, throat (occasional). denies: aerophagia, mask discomfort, air blowing in eyes, mask leak noise, condensation in mask/hose, nasal congestion, epistaxis Observed to snore while using device: No Current pressure setting perceived as: comfortable On therapy, patient: reports: sleeping better, awakening more refreshed, being more awake and alert during the day, more rested overall. denies: drowsiness while driving Initial Perry Sleepiness Scale score: 4 (08/23/2021) Current Perry Sleepiness Scale score: 3 (08/01/22) Allergies and Home Medications Known drug allergies: No Drug allergies reviewed: Yes Home medication list reviewed: Yes (no changes) Allergy and home medication list: Allergies No Known Drug Allergies Allergy (Verified 07/31/22 09:37) Review of Systems Review of systems same as previous: Yes (no changes) Physical Exam Vital signs obtained and entered by: ANDRESSA Sandoval MA Blood Pressure: 122/64 (LEFT ARM) Cuff size: regular Heart Rate: 74 O2 Saturation: 97 Height: 5 ft 6 in (PER PT) Weight: 187 lb 3.2 oz Weight change since last visit: 2 lb loss Body Mass Index: 30.2 BMI Classification: Obese Impression and Plan 1. Obstructive Sleep Apnea-Hypopnea Syndrome, severe, with good treatment compliance and fair apnea control with mild elevation of residual AHI. On CPAP therapy, the patient has better sleep quality and is more rested overall. Her apnea control has improved and she states the pressure setting is more comfortable. The trending AHI is improving and I will not make any changes to her pressure at this time. She was advised to call if she notices the AHI climbing again. She voiced understanding. If things change, a titration study may be needed to determine best pressure settings. Patient's apnea severity and rationale for treatment to reduce apnea, improve sleep quality and reduce cardiovascular and cerebrovascular events was reviewed. I also reviewed the benefit of consistent device use of CPAP for hypertension. 2. Obesity, unspecified. Currently patients BMI is 30.2. Obesity increases the risk of apnea, CPAP pressure requirements and overall health risks especially cardiovascular and diabetes. Thus patient is advised to continue to try to lose weight. * Continue auto CPAP pressure at 16-18 cmH2O * Notify me if snoring with mask or feeling that the pressure is too much or too little * Attempt to lose weight * Call this office if any problems using CPAP * Return for follow up in 1 year, or sooner if concerns arise Counseling Topics: Spare mask, Weight loss health impact Visit Type: In Office Time Spent with Patient (minutes): 12 Provider Statement: I spent 100% of the Face to Face Visit with the patient with greater than 50% spent counseling the patient and coordination of care.
[2022-08-01 11:25] VITALS: BP 122/64
== END 2022-08-01 10:55 | disposition home or self-care (01) ==
LOC: SC 10:54
PROVIDERS: ATTEND Nurse Practitioner Family
DX: G47.33 Obstructive sleep apnea (adult) (pediatric) (principal); E66.9 Obesity, unspecified; Z68.30 Body mass index [BMI] 30.0-30.9, adult
CPT/HCPCS: 99212; G0463

== ENCOUNTER 2023-08-15 09:48 | Outpatient (CLI) | payer MEDICARE, OTHER ==
--- NOTE | 2023-08-15 09:48 | SLEEP CARE CONSULTATION ---
Information from patient questionnaire entered by Andressa Altamirano. I have reviewed and concur with the information entered by Andressa Altamirano. This document represents the service I personally performed and the decisions made by , Queta Flores ARNP. History of Present Illness Service Date and Time: 08/15/2023 0920 Previous diagnosis: Severe, Obstructive Sleep Apnea-Hypopnea Syndrome AHI: 52.9 (in 2021) Reason for follow up: annual (LAST SEEN 07/2022) Equipment type: CPAP (RESMED Airsense 11 s/u 12/01/2021) Equipment obtained from: Other ([facility] in [place]; getting varghese pplies) Mask style: Full face Backup mask available: Yes Last cushion change: last week Prior sleep studies: Yes Year and Where: 2018 [facility] Type of Sleep Study: Polysomnography (DONE 10/14/21) HPI additional information: MISHA MEDINA was diagnosed to have severe, AHI 52.9, obstructive sleep apnea- hypopnea syndrome and returns via video appointment today for CPAP therapy annual follow-up. Sleep Study - Results Type of Sleep Study: Polysomnography (DONE 10/14/21) Prior sleep studies: Yes Year and Where: 2015, 2018 [facility] CPAP Compliance Data - Data Reviewed with Patient Average duration of nightly device use: 7 HRS 53 MINS Compliance rate %: 94 (08/13/22-08/12/23; 348/365 days used) Current pressure setting (cmH2O): 16-18 (avg 17.8, max 17.9) Average residual AHI: 9.6 Central apnea: 1.7 Obstructive apnea: 6.9 Hypopnea: 0.9 Average large leak: 0 L/mi Subjective Patient concerns: reports: condensation in mask/hose, dry mouth, nose, throat, other (mask strap leaving dent in head). denies: aerophagia, mask discomfort, air blowing in eyes, mask leak noise, nasal congestion, epistaxis Observed to snore while using device: No Current pressure setting perceived as: too high On therapy, patient: reports: sleeping better, awakening more refreshed, being more awake and alert during the day, more rested overall. denies: drowsiness while driving Initial Glen Sleepiness Scale score: 4 (08/23/2021) Current Glen Sleepiness Scale score: 8 Allergies and Home Medications Known drug allergies: No Drug allergies reviewed: Yes Home medication list reviewed: Yes (no changes) Allergy and home medication list: Allergies No Known Drug Allergies Allergy (Verified 08/13/23 08:25) Review of Systems Review of systems same as previous: Yes (no changes) Physical Exam Vital signs obtained and entered by: ANDRESSA Sandoval MA Height: 5 ft 6 in (PER PT) Weight: 185 lb (per pt) Body Mass Index: 29.8 BMI Classification: Overweight Impression and Plan 1. Obstructive Sleep Apnea-Hypopnea Syndrome, severe, with good treatment compliance and fair apnea control with elevated residual AHI. On CPAP therapy, the patient has better sleep quality and is more rested overall. She does not like the CPAP and is wanting to see it she is a candidate for Inspire implant. Patient states she is seeing a sleep doctor at [facility] in August about the Inspire implant device for sleep apnea. She does not feel she could tolerate more pressure. Goals for apnea control discussed. She is open to the idea of a titration study to find optimal pressures if things do not work out with Inspire. Titration study needed to find optimal pressure if she continues with PAP therapy and will be scheduled to find optimal pressure to control sleep apnea. Patient agreed but wants to wait to schedule until after her appointment with doctor at [facility]. Patient's apnea severity and rationale for treatment to reduce apnea, improve sleep quality and reduce cardiovascular and cerebrovascular events was reviewed. I also reviewed the benefit of consistent device use of CPAP for hypertension. 2. Overweight, unspecified. Currently patients BMI is 29.8. Obesity increases the risk of apnea, CPAP pressure requirements and overall health risks especially cardiovascular and diabetes. Thus patient is advised to lose weight. * Continue auto CPAP pressure at 16-18 cmH2O * Titration study * Update supply prescription * Notify me if snoring with mask or feeling that the pressure is too much or too little * Attempt to lose weight * Call this office if any problems using CPAP * Return for follow up after titration study, or sooner if concerns arise Counseling Topics: Spare mask, Weight loss health impact Prescriptions: Device supplies Plan: Titration study and follow up Visit Type: Telehealth Video Video Type: Doximity Patient Location: Home Location of Provider: Office Patient agrees and consents to this telehealth visit type: Yes Time Spent with Patient (minutes): 20 Provider Statement: I spent 100% of the Telehealth Video Call with the patient with greater than 50% spent counseling the patient and coordination of care.
== END 2023-08-15 09:49 | disposition home or self-care (01) ==
LOC: SC 09:48
PROVIDERS: ATTEND Nurse Practitioner Family
DX: G47.33 Obstructive sleep apnea (adult) (pediatric) (principal); E66.3 Overweight; Z68.29 Body mass index [BMI] 29.0-29.9, adult

== ENCOUNTER 2023-11-01 19:36 | Outpatient (CLI) | payer MEDICARE, OTHER | END 2023-11-01 19:37 | disposition home or self-care (01) | LOC: SC 19:36 | PROVIDERS: ATTEND Nurse Practitioner Family | DX: G47.33 Obstructive sleep apnea (adult) (pediatric) (principal); G47.61 Periodic limb movement disorder | CPT/HCPCS: 95811 ==

== ENCOUNTER 2023-11-07 11:42 | Outpatient (CLI) | payer MEDICARE, OTHER ==
--- NOTE | 2023-11-07 11:00 | SLEEP CARE CONSULTATION ---
Information from patient questionnaire entered by Fatimah Altamirano. I have reviewed and concur with the information entered by Fatimah Altamirano. This document represents the service I personally performed and the decisions made by , Queta Flores ARNP. History of Present Illness Service Date and Time: 11/07/2023 1040 Initial [place] Sleepiness Scale score: 4 (08/23/2021) Current [place] Sleepiness Scale score: 1 (11/07/23) Additional HPI information: MISHA MEDINA returns for follow up of a manual CPAP titration study performed on 11/01/23. Previous study done on 10/14/2021 showed severe obstructive sleep apnea with AHI 52.9. The patient was informed of the following polysomnography findings: CPAP was initiated at 12 cmH2O and titrated up to 18 cmH2O. CPAP at 17 cmH2O appeared to be optimal (AHI of 0.8 per hour on the pressure). There was supine REM sleep on the pressure. Oxygen saturation was minimally low. Lower CPAP settings allowed frequent residual respiratory events. The patient appeared to have tolerated positive airway pressure therapy very well. She had severe periodic leg movement of sleep contributing to sleep fragmentation. She will be continue on APAP pressure at 17 cmH2O. Sleep Study - Results Type of Sleep Study: Polysomnography (DONE 10/14/21 TITRATION COMPLETED 11/01/23) Prior sleep studies: Yes Year and Where: 2015, 2018 [facility] Polysomnography/Home Sleep Study results: IMPRESSION: The quality of the study is good. CPAP was initiated at 12 cmH2O and titrated up to 18 cmH2O. CPAP at 17 cmH2O appeared to be optimal (AHI of 0.8 per hour on the pressure). There was supine REM sleep on the pressure. Oxygen saturation was minimally low. Lower CPAP settings allowed frequent residual respiratory events. The patient appeared to have tolerated positive airway pressure therapy very well. The patients sleep efficiency was normal. The sleep architecture was abnormal for sleep fragmentation and reduced amount of time spent in slow wave sleep (N3). There was severe periodic leg movement of sleep, contributing to the sleep fragmentation. Cardiac rhythm was normal sinus rhythm without significant arrhythmia. No abnormal behavior (parasomnia) observed during the night. CONCLUSIONS and RECOMMENDATIONS: 1. Obstructive sleep apnea-hypopnea (ICD-10 G47.33), severe (AHI was 52.8), adequately controlled with CPAP at 17 cmH2O. CPAP therapy is, therefore, recommended at the pressure setting. AutoCPAP set between 14 and 18 cmH20 is also appropriate. Mask used was a [employer] full face mask size small. With BMI of 29.2 Kg/M2 , weight loss is also recommended. 2. Periodic leg movement of sleep (ICD G47.61), severe, treatment may be indicated. Clinical correlation advised. Allergies and Home Medications Known drug allergies: No Drug allergies reviewed: Yes Home medication list reviewed: Yes (no changes) Allergy and home medication list: Allergies No Known Drug Allergies Allergy (Verified 11/07/23 10:38) Review of Systems Review of systems same as previous: Yes (NO CHANGE) Physical Exam Vital signs obtained and entered by: FATIMAH Sandoval MA Height: 5 ft 6 in (PER PT) Weight: 180 lb (PER PT) Body Mass Index: 29.0 BMI Classification: Overweight Impression and Plan 1. Obstructive Sleep Apnea-Hypopnea Syndrome, severe. Patient returns after titration study to find optimal pressure. Continuing with positive pressure therapy could benefit hypertension. Her optimal pressure appeared to be 17 cmH2O. Her CPAP pressure will be set at 17 cmH2O. Compliance guidelines also reviewed. A copy of compliance guidelines will be given for reference at check out. I will see her back in office in 1-2 months to review. She has an appointment with a specialist for the Inspire implant next month. She is unsure she is going to be going through with it yet. 2. Periodic limb movement, severe, that did contribute to the fragmentation of the patients sleep. Periodic limb movement of sleep (PLMS) is characterized by episodes of repetitive limb movements that occur during sleep and usually involve the lower limbs. The etiology is unknown. Patient was advised that no treatment is needed at this time. If symptoms increase, then further evaluation is indicated. 3. Overweight, unspecified. Currently patients BMI is 29. Obesity increases the risk of apnea, CPAP pressure requirements and overall health risks especially cardiovascular and diabetes. Thus patient is advised to lose weight. * Change to CPAP pressure to 17 cmH2O * Notify me if snoring with mask or feeling that the pressure is too much or too little * Attempt to lose weight * Call this office if any problems using CPAP * Return for follow up in 1-2 months, or sooner if concerns arise Adjust device pressure to (cmH2O): 17 Counseling Topics: Weight loss health impact Follow up with Sleep Care in: 1-2 months Visit Type: In Office Time Spent with Patient (minutes): 20 Provider Statement: I spent 100% of the Face to Face Visit with the patient with greater than 50% spent counseling the patient and coordination of care.
== END 2023-11-07 11:43 | disposition home or self-care (01) ==
LOC: SC 11:42
PROVIDERS: ATTEND Nurse Practitioner Family
DX: G47.33 Obstructive sleep apnea (adult) (pediatric) (principal); G47.61 Periodic limb movement disorder; E66.3 Overweight; Z68.29 Body mass index [BMI] 29.0-29.9, adult; G25.81 Restless legs syndrome; E83.19 Other disorders of iron metabolism
CPT/HCPCS: 36415; 82728

== ENCOUNTER 2023-11-07 12:30 | Outpatient (CLI) | payer MEDICARE, OTHER | END 2023-11-07 12:31 | disposition home or self-care (01) | LOC: LAB 12:30 | PROVIDERS: ATTEND Internal Medicine | DX: G25.81 Restless legs syndrome (principal); G47.61 Periodic limb movement disorder; E83.19 Other disorders of iron metabolism | CPT/HCPCS: 36415; 82728 ==